=== PATIENT | female | born 1960 | race Caucasian/White ===

== ENCOUNTER 2020-04-15 21:45 | Inpatient (IN) | payer OTHER ==
[~2020-04-15] VITALS: Ht 177.8 cm; Wt 128.2 kg
--- NOTE | 2020-04-15 22:58 | PHYS DOC ---
Adult General Chief Complaint Chief Complaint: SHORTNESS OF BREATH HPI HPI Patient is a 59-year-old female who presents with a chief complaint of shortness of breath and measured hypoxia to 88 on home O2 sat monitor. States she has had symptoms of fever, dry cough and shortness of breath over the last 5 to 6 days and tested positive for Covid yesterday. States that after testing positive she brought her home O2 monitor and noticed that she was short of breath, tested herself at home when she was 88. States he has been taking Tylenol for the fever which helps a little. States she is still eating and drinking however. States he is making urine and stool normally with no blood in it. Denies any smoking, drinking or drugs. States she did have a fever up until 2 days ago 101. Denies headache, sore throat, runny nose, chest pain, abdominal pain, nausea, vomiting, dysuria, diarrhea or rash. Review of Systems Review of Systems Review of systems otherwise unremarkable except noted in HPI Current Medications Current Medications Current Medications Medications (Trade) Dose Ordered Sig/Samara Start Time Stop Time Status Last Admin Dose Admin Dexamethasone (Decadron) 6 mg 1X ONCE 04/15/20 23:30 04/15/20 23:31 Ibuprofen (Motrin) 600 mg 1X ONCE 04/15/20 23:30 04/15/20 23:31 Info (Do NOT chart on this entry -- for MONITORING) 1 each PRN DAILY PRN 04/15/20 23:00 04/17/20 22:59 Iohexol (Omnipaque 300 Mg/ml) 75 ml 1X ONCE 04/15/20 23:30 04/15/20 23:31 Lactated Ringer's 500 ml @ 500 mls/hr 1X ONCE 04/15/20 23:30 04/16/20 00:29 Allergies Allergies Allergies Coded Allergies Type Severity Reaction Last Updated Verified Penicillins Allergy Intermediate Rash 04/15/20 Yes Physical Exam Physical Exam Constitutional: Well developed, well nourished, no acute distress, non-toxic appearance. [] HENT: Normocephalic, atraumatic, oropharynx moist, no oral exudates, nose normal. [] Eyes: conjunctiva normal, no discharge. [] Neck: Normal range of motion, no tenderness, supple, no stridor. [] Cardiovascular: Tachycardia Lungs & Thorax: Global rhonchi Abdomen: soft, no tenderness, no masses, no pulsatile masses. [] Skin: Warm, dry, no erythema, no rash. [] Back: No tenderness, Extremities: No tenderness, no cyanosis, no clubbing, ROM intact, no edema. [] Neurologic: Alert and oriented X 3, normal motor function, normal sensory function, no focal deficits noted. [] Psychologic: Affect normal, judgement normal, mood normal. [] Current Patient Data Lab Results Laboratory Tests Test 04/15/20 22:50 White Blood Count 4.7 x10^3/uL (4.0-11.0) Red Blood Count 4.64 x10^6/uL (3.50-5.40) Hemoglobin 13.4 g/dL (12.0-15.5) Hematocrit 41.8 % (36.0-47.0) Mean Corpuscular Volume 90 fL (79-100) Mean Corpuscular Hemoglobin 29 pg (25-35) Mean Corpuscular Hemoglobin Concent 32 g/dL (31-37) Red Cell Distribution Width 14.9 % (11.5-14.5) Platelet Count 179 x10^3/uL (140-400) Neutrophils (%) (Auto) 79 % (31-73) Lymphocytes (%) (Auto) 12 % (24-48) Monocytes (%) (Auto) 8 % (0-9) Eosinophils (%) (Auto) 0 % (0-3) Basophils (%) (Auto) 1 % (0-3) Neutrophils # (Auto) 3.7 x10^3uL (1.8-7.7) Lymphocytes # (Auto) 0.6 x10^3/uL (1.0-4.8) Monocytes # (Auto) 0.4 x10^3/uL (0.0-1.1) Eosinophils # (Auto) 0.0 x10^3/uL (0.0-0.7) Basophils # (Auto) 0.0 x10^3/uL (0.0-0.2) Sodium Level 140 mmol/L (136-145) Potassium Level 3.6 mmol/L (3.5-5.1) Chloride Level 103 mmol/L (98-107) Carbon Dioxide Level 29 mmol/L (21-32) Anion Gap 8 (6-14) Blood Urea Nitrogen 10 mg/dL (7-20) Creatinine 1.1 mg/dL (0.6-1.0) Estimated GFR (Cockcroft-Gault) 50.7 BUN/Creatinine Ratio 9 (6-20) Glucose Level 120 mg/dL (70-99) Lactic Acid Level 1.5 mmol/L (0.4-2.0) Calcium Level 8.3 mg/dL (8.5-10.1) Total Bilirubin 0.5 mg/dL (0.2-1.0) Aspartate Amino Transf (AST/SGOT) 62 U/L (15-37) Alanine Aminotransferase (ALT/SGPT) 49 U/L (14-59) Alkaline Phosphatase 122 U/L (46-116) Troponin I Quantitative 0.023 ng/mL (0-0.055) Total Protein 7.1 g/dL (6.4-8.2) Albumin 3.0 g/dL (3.4-5.0) Albumin/Globulin Ratio 0.7 (1.0-1.7) EKG EKG Heart rate of 104, QRS of 84, QTc of 445, no STEMI [] Radiology/Procedures Radiology/Procedures []FINDINGS: Thyroid gland is normal in appearance. Right paratracheal lymph node measures 11 mm (series 3, image 20). Precarinal lymph node measures 10 mm (series 3, image 24). Subcarinal lymph node measures 12 mm (series 3, image 29) mild hepatic steatosis. Otherwise, visualized portions of the upper abdomen appear normal. No suspicious osseous abnormality is identified. Heart size within normal limits. Ascending thoracic aorta is normal in course and caliber. There are are multifocal areas of groundglass changes with mild interstitial prominence. There is relative subpleural sparing at the lung bases. Differential considerations would include alveolar edema versus multifocal pneumonia. No pleural effusions or pneumothorax. IMPRESSION: Multifocal areas of groundglass changes with mild interstitial prominence suggestive of a pneumonitis of infectious/inflammatory etiology. Less likely consideration would be given for pulmonary edema. Mediastinal lymphadenopathy is likely reactive. 3 month follow-up chest CT could be of benefit to ensure resolution. Electronically signed by: Cass Gudino MD (04/16/2020 12:00 AM) [facility] Heart Score Risk Factors: Risk Factors: DM, Current or recent (<one month) smoker, HTN, HLP, family history of CAD, obesity. Risk Scores: Risk Factors: DM, Current or recent (<one month) smoker, HTN, HLP, family history of CAD, obesity. Course & Med Decision Making Course & Med Decision Making Patient is a 59-year-old female who presents Covid positive with shortness of breath Vital signs notable for tachycardia, tachypnea and hypoxia on room air. Physical exam noted above. Patient placed on monitor with IV access established. 3 L nasal cannula applied to bring patient's O2 sat up to approximately 94%. EKG noted above with sinus tachycardia. Given IV fluid resuscitation, Tylenol, ibuprofen and steroids. Patient clinically improving but still on 3 L nasal cannula. Blood cultures. Started on Levaquin in the ED. Discussed findings with patient and recommended admission for continued evaluation and treatment of most likely Covid pneumonia and hypoxia. Patient grateful, verbalized understanding and agreed with plan of admission. [] Dragon Disclaimer Dragon Disclaimer This electronic medical record was generated, in whole or in part, using a voice recognition dictation system. Departure Departure: Impression: Primary Impression: Hypoxia Additional Impressions: Shortness of breath COVID-19 Pneumonia Disposition: ADMITTED INPT THIS HOSP Admitting Physician: Titi Tompkins Condition: IMPROVED Referrals: PCP,UNKNOWN (PCP) Problem Qualifiers LINDA KINSEY MD Apr 15, 2020 22:58
[2020-04-15] MEDS ORDERED: CONTRAST GIVEN. MC PRN (23:00)
[2020-04-15 23:07] LABS: BASO % 1 % (0-3); EOS % 0 % (0-3); HEMATOCRIT 41.8 % (36.0-47.0); HEMOGLOBIN 13.4 g/dL (12.0-15.5); LYMPH # 0.6 x10^3/uL (1.0-4.8); LYMPH % 12 % (24-48); MEAN CORPUSCULAR HEMOGLOBIN 29 pg (25-35); MEAN CORPUSCULAR HGB CONC 32 g/dL (31-37); MEAN CORPUSCULAR VOLUME 90 fL (79-100); MONO # 0.4 x10^3/uL (0.0-1.1); MONO % 8 % (0-9); NEUT # 3.7 x10^3uL (1.8-7.7); NEUT % 79 % (31-73); PLATELET COUNT 179 x10^3/uL (140-400); RED BLOOD COUNT 4.64 x10^6/uL (3.50-5.40); RED CELL DISTRIBUTION WIDTH 14.9 % (11.5-14.5); WHITE BLOOD COUNT 4.7 x10^3/uL (4.0-11.0)
[2020-04-15 23:17] LABS: CALCIUM 8.3 mg/dL (8.5-10.1); CREATININE 1.1 mg/dL (0.6-1.0); GFR 50.7; POTASSIUM 3.6 mmol/L (3.5-5.1)
[2020-04-15 23:21] LABS: ALBUMIN/GLOBULIN RATIO 0.7 (1.0-1.7); TOTAL BILIRUBIN 0.5 mg/dL (0.2-1.0); TOTAL PROTEIN 7.1 g/dL (6.4-8.2)
[2020-04-15] MEDS ORDERED: IV RINGERS SOLUTION,LACTATED 500 ML IV ONE (23:30)
[2020-04-15] MEDS ORDERED: IBUPROFEN 600 MG TABLET. PO ONE (23:30)
[2020-04-15] MEDS ORDERED: DEXAMETHASONE 4 MG TABLET PO ONE (23:30)
[2020-04-15] MEDS ORDERED: IOHEXOL 300 MG/ML 75 ML VIAL. IV ONE (23:30)
--- NOTE | 2020-04-16 00:02 | RAD ---
PQRS Compliance Statement: One or more of the following individualized dose reduction techniques were utilized for this examinat ion: 1. Automated exposure control 2. Adjustment of the mA and/or kV according to patient size 3. Use of iterative reconstruction technique CT THORAX W 04/15/2020 11:12 PM Indication: Hypoxia, cough and congestion. Covid. COMPARISON: None available. TECHNIQUE: Multiple axial CT images of the chest were obtained after the intravenous administration o f 75 cc Omnipaque 300. Coronal and sagittal reformats are provided. FINDINGS: Thyroid gland is normal in appearance. Right paratracheal lymph node measures 11 mm (series 3, image 20). Precarinal lymph node measures 10 mm (series 3, image 24). Subcarinal lymph node measures 12 mm (series 3, image 29) mild hepatic steatosis. Otherwise, visualized portions of the upper abdomen appe ar normal. No suspicious osseous abnormality is identified. Heart size within normal limits. Ascendin g thoracic aorta is normal in course and caliber. There are are multifocal areas of groundglass changes with mild interstitial prominence. There is rel ative subpleural sparing at the lung bases. Differential considerations would include alveolar edema versus multifocal pneumonia. No pleural effusions or pneumothorax. IMPRESSION: Multifocal areas of groundglass changes with mild interstitial prominence suggestive of a pneumonitis of infectious/inflammatory etiology. Less likely consideration would be given for pulmonary edema. Mediastinal lymphadenopathy is likely reactive. 3 month follow-up chest CT could be of benefit to ens ure resolution. Electronically signed by: Cass Gudino MD (04/16/2020 12:00 AM) [facility]
[2020-04-16] MEDS: IV NORMAL SALINE 1,000ML 1,000 ML IV SCH ×2 (04:30→16:01)
[2020-04-16 05:30] VITALS: BP 127/76
[2020-04-16 06:11] LABS: BASO % 0 % (0-3); EOS % 0 % (0-3); HEMATOCRIT 39.3 % (36.0-47.0); HEMOGLOBIN 12.6 g/dL (12.0-15.5); LYMPH # 0.5 x10^3/uL (1.0-4.8); LYMPH % 9 % (24-48); MEAN CORPUSCULAR HEMOGLOBIN 29 pg (25-35); MEAN CORPUSCULAR HGB CONC 32 g/dL (31-37); MEAN CORPUSCULAR VOLUME 90 fL (79-100); MONO # 0.4 x10^3/uL (0.0-1.1); MONO % 7 % (0-9); NEUT # 4.7 x10^3uL (1.8-7.7); NEUT % 84 % (31-73); PLATELET COUNT 194 x10^3/uL (140-400); RED BLOOD COUNT 4.37 x10^6/uL (3.50-5.40); RED CELL DISTRIBUTION WIDTH 14.8 % (11.5-14.5); WHITE BLOOD COUNT 5.6 x10^3/uL (4.0-11.0)
--- NOTE | 2020-04-16 06:12 | EKG ---
[address] [address] Test Date: 2020-04-15 Test Time: 22:31:44 Pat Name: MOR PITTMAN Department: Room: 103 A Gender: F [employer] Principal: : 1960 Requested By: LINDA KINSEY Order Number: [id number] Reading MD: Measurements Intervals [place] Rate: 104 P: -2 WV: 130 QRS: 8 QRSD: 84 T: 19 QT: 334 QTc: 445 Interpretive Statements SINUS TACHYCARDIA NO SPECIFIC ECG ABNORMALITIES RI6.02 No previous ECG available for comparison
[2020-04-16 06:36] LABS: CALCIUM 8.3 mg/dL (8.5-10.1); CREATININE 0.8 mg/dL (0.6-1.0); GFR 73.2; POTASSIUM 3.5 mmol/L (3.5-5.1)
[2020-04-16] MEDS: IPRATROPIUM/ALBUTEROL 20/100mcg/INH INHALER. INH SCH ×4 (08:04→20:51)
[2020-04-16] MEDS: ENOXAPARIN 40 MG/0.4 ML SYRINGE. SQ SCH ×2 (08:05→20:52)
[2020-04-16 09:59] VITALS: BP 130/78
[2020-04-16] MEDS: DEXAMETHASONE SOD PHOS 4 MG/ML VIAL. IVP SCH (17:00)
--- NOTE | 2020-04-16 17:22 | HP ---
ADMIT DATE: 04/16/2020 HISTORY OF PRESENT ILLNESS: The patient is a 59-year-old female patient who presented to the Emergency Room with chief complaint of shortness of breath, hypoxia with oxygen saturation at 88% detected on home oxygen monitor. She stated that had symptoms of fever, dry cough and shortness of breath over the last 5-6 days. She was tested positive for COVID on 04/14/2020 and apparently had received her first dose of vaccine last week. She has taken Tylenol for fever without much help. She denied any headache. Denied any loss of smell or taste. Denied any nausea, vomiting or diarrhea. She was extensively investigated, has had lab work and imaging studies. Her CBC showed no abnormalities. She is mildly dehydrated on admission. Otherwise, her electrolytes are normal. Her AST and alkaline phosphatase slightly elevated. Her CT scan of the chest showed the patient has multifocal areas of ground glass changes with mild interstitial prominence suggestive of pneumonitis with infectious, inflammatory etiology, less likely consideration will be given for pulmonary edema. She has mediastinal lymphadenopathy, likely reactive. The patient was admitted with COVID-19 pneumonia as well as acute hypoxic respiratory failure. PAST MEDICAL HISTORY: Significant for hypothyroidism, hyperlipidemia, and questionable diabetes. PAST SURGICAL HISTORY: Unremarkable. ALLERGIES: SHE IS ALLERGIC TO PENICILLIN. MEDICATIONS: She is currently on following medications: She is on simvastatin 20 mg at bedtime, levothyroxine 75 mcg once a day. FAMILY HISTORY: She has 2 brothers and 2 sisters, one of her sisters has type 2 diabetes mellitus. The others are healthy. Her father is still alive at the age of 95, is known to have hyperlipidemia. Mother at age of 79, and as a complication of her diabetes and heart failure. She is known to have hypertension and diabetes, myocardial infarction, coronary artery bypass graft surgery and congestive heart failure. SOCIAL HISTORY: She is , has 2 sons and 1 daughter. She never smoked and does not drink alcohol or use any recreational drugs. She works as a teacher. REVIEW OF SYSTEMS: The patient denied any blurring of vision, cataract, glaucoma or macular degeneration. Denied any earache, tinnitus or sensorineural deafness. Denied any nosebleeds, stuffy nose or postnasal drip. Denied any sore throat, sore tongue, toothache, hoarseness of voice or difficulty swallowing. She denied any nausea, vomiting, diarrhea or constipation. Denied any hematemesis, melena or hematochezia. Denied any dysuria, frequency or hematuria. Denied any chest pain. Did complain of shortness of breath and cough that is mostly dry and hacking. Denied any orthopnea or paroxysmal nocturnal dyspnea. Denied any dizziness, lightheadedness, or vertigo. PHYSICAL EXAMINATION: GENERAL: On arrival to the Emergency Room, she looked slightly tachypneic, but there is no pallor, jaundice, cyanosis or thyromegaly. No jugular venous distension. No limb edema. VITAL SIGNS: Her heart rate was 94, blood pressure 155/79, temperature was 102.7, respiratory rate was 22 and oxygen saturation was 93% on 3 liters of oxygen. HEAD, EYES, EARS, NOSE AND THROAT: Showed normocephalic, atraumatic. NECK: Supple. HEART: Showed normal first and second heart sounds. No gallop, rub or murmur. CHEST: Clear to auscultation. No crepitation or rhonchi. ABDOMEN: Distended, soft, nontender. NEUROLOGIC: She is awake, alert, responding appropriately. All her cranial nerves are intact. She moves all extremities without difficulty. She ambulates without assistance or assistive devices. LABORATORY DATA: Showed a serum sodium 140, potassium 3.6, chloride 103, bicarbonate 29, anion gap of 8, BUN 10, creatinine 1.1, estimated GFR was 51 mL per minute, her glucose 120, lactic acid was 1.5, and calcium was 8.3. Total bilirubin and ALT are normal. AST and alkaline phosphatase slightly elevated. Total protein 7.1, albumin was 3. Her white cell count was 4.7, hemoglobin 13.4, hematocrit 41, MCV 90, and platelet count of 179,000. Her CT angio of the chest showed that the thyroid gland is normal in appearance. Right paratracheal lymph nodes measuring up to 11 mm. She has been precarinal lymph nodes measuring 10 mm, subcarinal lymph node measuring 12 mm. Mild hepatic steatosis, otherwise the visualized portion of the upper abdomen appears normal. No suspicious osseous abnormality identified. The heart size is within normal limits. Ascending thoracic aorta is normal in course and caliber. There are multifocal areas of ground glass changes with mild interstitial prominence. There is relative subpleural sparing of the lung bases. Differential consideration would include alveolar edema versus multifocal pneumonia. No pleural effusion or pneumothorax. ASSESSMENT AND PLAN: The patient was admitted with COVID-19 pneumonia as well as acute hypoxic respiratory failure. Other medical problems include hypothyroidism, hyperlipidemia and questionable type 2 diabetes. Her hemoglobin A1c last time was checked was 6.5% in March of last year. The patient was admitted and was started on IV levofloxacin and lactobacillus as well as Lovenox 40 mg subcutaneous twice a day together with bronchodilator and dexamethasone. JEROME MENEZES MD DR: AAMIR/roddy JOB#: [id number] / [id number]
[2020-04-16 19:54] VITALS: BP 131/84
--- NOTE | 2020-04-16 20:09 | PN ---
DATE: 04/16/2020 SUBJECTIVE: The patient is sitting comfortably in her chair, no apparent respiratory distress. She, however, continued to have recurrent hacking cough, is mostly dry and distressing. Denied any chest pain. Denied any chills, rigors, or fever. PHYSICAL EXAMINATION: GENERAL: When I saw her this afternoon, she looked well and was clearly in no apparent respiratory distress. No pallor, jaundice, cyanosis or thyromegaly. No jugular venous distention or limb edema. VITAL SIGNS: Her heart rate was 81, blood pressure was 130/78, temperature was 98, respiratory rate was 18 and oxygen saturation was 93% on 3 liters of oxygen by nasal cannula. HEAD, EYES, EARS, NOSE AND THROAT: Showed normocephalic, atraumatic. NECK: Supple. HEART: Normal first and second heart sounds. No gallop, rub or murmur. CHEST: Clear to auscultation. No crepitation or rhonchi. ABDOMEN: Distended, soft, nontender. NEUROLOGIC: She was grossly intact. Her intake and output were incompletely recorded. LABORATORY DATA: Her lab work this morning showed a white cell count of 5600; hemoglobin 12.6; hematocrit 39; MCV 90 and platelet count of 194,000. Her chemistry showed a serum sodium 139, potassium 3.5, chloride 101, bicarbonate 26, anion gap of 12, BUN 9, creatinine 0.8, estimated GFR was 73 mL per minute. Her glucose 161 and calcium was 8.3. ASSESSMENT: 1. COVID-19 pneumonia. 2. Acute hypoxic respiratory failure. 3. Questionable superimposed community-acquired pneumonia. 4. Hypothyroidism. 5. Hyperlipidemia. 6. Questionable type 2 diabetes mellitus. JEROME MENEZES MD DR: AAMIR/roddy JOB#: [id number] / [id number]
[2020-04-16] MEDS: SIMVASTATIN 20 MG TABLET PO SCH (20:52)
[2020-04-16] MEDS: LACTOBACILLUS RHAMNOSUS GG 1 CAPSULE. PO SCH (20:52)
[2020-04-16] MEDS: ACETAMINOPHEN/CODEINE 300/30MG TABLET PO SCH (20:53)
[2020-04-17] MEDS: IV NORMAL SALINE 1,000ML 1,000 ML IV SCH ×2 (01:30→21:34)
[2020-04-17] MEDS: LEVOTHYROXINE 75 MCG TABLET PO SCH (05:39)
[2020-04-17 06:00] VITALS: BP 114/73
[2020-04-17] MEDS: ENOXAPARIN 40 MG/0.4 ML SYRINGE. SQ SCH ×2 (08:00→21:34)
[2020-04-17] MEDS: LACTOBACILLUS RHAMNOSUS GG 1 CAPSULE. PO SCH ×2 (08:00→21:34)
[2020-04-17] MEDS: DEXAMETHASONE SOD PHOS 4 MG/ML VIAL. IVP SCH (08:00)
[2020-04-17] MEDS: IPRATROPIUM/ALBUTEROL 20/100mcg/INH INHALER. INH SCH ×4 (08:00→21:34)
[2020-04-17 09:43] LABS: ALBUMIN 2.5 g/dL (3.4-5.0); ALBUMIN/GLOBULIN RATIO 0.7 (1.0-1.7); CALCIUM 7.9 mg/dL (8.5-10.1); CREATININE 0.8 mg/dL (0.6-1.0); GFR 73.2; POTASSIUM 3.6 mmol/L (3.5-5.1); TOTAL BILIRUBIN 0.3 mg/dL (0.2-1.0); TOTAL PROTEIN 6.3 g/dL (6.4-8.2)
[2020-04-17 11:27] VITALS: BP 137/76
--- NOTE | 2020-04-17 13:58 | PN ---
DATE: 04/17/2020 SUBJECTIVE: The patient is sitting comfortably in her chair, continued to complain of recurrent bouts of cough. She also had episodes of drenching sweats at night time, but denied any chest pain. Her oxygen saturation was about 91-92% on 4 liters of oxygen. OBJECTIVE: GENERAL: When I examined her this afternoon, she looked well and was clearly in no apparent respiratory distress. No pallor, jaundice, cyanosis or thyromegaly. No jugular venous distension. No limb edema. VITAL SIGNS: Her heart rate was 74, blood pressure was 137/76, temperature was 97.7, respiratory rate was 18 and oxygen saturation was 93% on 4 liters of oxygen. HEAD, EYES, EARS, NOSE, AND THROAT: Showed normocephalic, atraumatic. NECK: Supple. HEART: Showed normal first and second heart sounds. No gallop or murmur. CHEST: Clear to auscultation. No crepitation or rhonchi. ABDOMEN: Distended, soft, nontender. NEUROLOGIC: She is awake, alert, responding appropriately. All cranial nerves intact. She moves extremities without difficulty. Her intake was 1100, no output was recorded. LABORATORY DATA: As of yesterday showed a white cell count 5600, hemoglobin 12.6, hematocrit 39, MCV 90 and platelet count of 194,000 with normal manual differential. Her chemistry this morning showed a serum sodium 143, potassium 3.6, chloride 108, bicarbonate 28, anion gap of 7, BUN 13, creatinine 0.8, estimated GFR was 73 mL per minute. Her glucose 168, calcium was 7.9. Total bilirubin and alkaline phosphatase is normal. AST, ALT are elevated. Her total protein was 6.3, albumin was 2.5. D-dimer was high at 1.02. However, her CT angio of the chest showed that the patient has multifocal areas of ground glass changes with mild interstitial prominence suggestive of pneumonitis with infectious, inflammatory etiology. ASSESSMENT: 1. COVID-19 pneumonia. 2. Acute hypoxic respiratory failure. 3. Questionable superimposed community-acquired pneumonia. 4. Hypothyroidism. 5. Hyperlipidemia. 6. Questionable type 2 diabetes mellitus. PLAN: To continue with levothyroxine. Continue with levofloxacin. Continue with Codeine, dexamethasone 6 mg IV daily and Lovenox 40 mg subcutaneous twice a day together with bronchodilator. JEROME MENEZES MD DR: AAMIR/roddy JOB#: [id number] / [id number]
[2020-04-17] MEDS: ACETAMINOPHEN/CODEINE 300/30MG TABLET PO SCH (21:34)
[2020-04-17] MEDS: SIMVASTATIN 20 MG TABLET PO SCH (21:34)
[2020-04-17 21:45] VITALS: BP 142/86
[2020-04-18] MEDS: LEVOTHYROXINE 75 MCG TABLET PO SCH (05:25)
[2020-04-18 06:13] VITALS: BP 124/81
[2020-04-18] MEDS: IPRATROPIUM/ALBUTEROL 20/100mcg/INH INHALER. INH SCH ×4 (08:00→20:00)
[2020-04-18 08:09] LABS: HEMATOCRIT 36.4 % (36.0-47.0); HEMOGLOBIN 11.7 g/dL (12.0-15.5); RED BLOOD COUNT 4.04 x10^6/uL (3.50-5.40); RED CELL DISTRIBUTION WIDTH 15.2 % (11.5-14.5)
[2020-04-18 08:20] LABS: ALBUMIN 2.4 g/dL (3.4-5.0); ALBUMIN/GLOBULIN RATIO 0.7 (1.0-1.7); CREATININE 0.8 mg/dL (0.6-1.0); GFR 73.2; POTASSIUM 3.1 mmol/L (3.5-5.1); TOTAL BILIRUBIN 0.3 mg/dL (0.2-1.0)
[2020-04-18] MEDS ORDERED: POTASSIUM CHLORIDE 20 MEQ TABLET.ER. PO ONE (08:45)
[2020-04-18] MEDS: LACTOBACILLUS RHAMNOSUS GG 1 CAPSULE. PO SCH ×2 (09:13→20:37)
[2020-04-18] MEDS: DEXAMETHASONE SOD PHOS 4 MG/ML VIAL. IVP SCH (09:13)
[2020-04-18] MEDS: ENOXAPARIN 40 MG/0.4 ML SYRINGE. SQ SCH ×2 (09:14→20:37)
[2020-04-18] MEDS ORDERED: LORazepam 0.5 MG TABLET PO PRN (10:00)
[2020-04-18] MEDS ORDERED: ACETAMINOPHEN/CODEINE 300/30MG TABLET PO PRN (10:30)
[2020-04-18 11:16] VITALS: BP 155/69
[2020-04-18 12:26] LABS: CALCIUM 8.1 mg/dL (8.5-10.1); GFR 56.6; POTASSIUM 3.5 mmol/L (3.5-5.1)
--- NOTE | 2020-04-18 14:16 | PN ---
DATE: 04/18/2020 SUBJECTIVE: The patient was resting, almost flat in bed, sleeping comfortably. She apparently had an episode of anxiety this morning, it has resolved spontaneously. We did actually order Tylenol No. 3 and also Ativan, but she declined to take Ativan and she has managed to have a nap around for almost an hour, after which she felt very well. PHYSICAL EXAMINATION: GENERAL: When I examined her, she looked well and was clearly in no apparent respiratory distress, slightly pale, no jaundice, cyanosis or thyromegaly. No jugular venous distention. No lower limb edema. VITAL SIGNS: Her heart rate was 80, blood pressure was 155/69, temperature was 97.4, respiratory rate was 20, and oxygen saturation was 94% on 3-4 liters of oxygen. HEAD, EYES, EARS, NOSE, AND THROAT: Showed normocephalic, atraumatic. NECK: Supple. HEART: Showed normal first and second heart sounds. No gallop or murmurs. CHEST: Showed central trachea, equal bilateral chest expansion, air entry, vesicular sounds. No crepitation or rhonchi anteriorly, bilateral basal crepitation without any rhonchi posteriorly. ABDOMEN: Distended, soft, nontender. NEUROLOGIC: She was grossly intact. Her intake was 1820, no output was recorded. LABORATORY DATA: Her lab work this morning showed a serum sodium 144, potassium 3.1, chloride 108, bicarbonate 28, anion gap of 8, BUN 14, creatinine 0.8, estimated GFR was 73 mL per minute. Her glucose was 123, calcium was 8. Total bilirubin and alkaline phosphatase normal. AST, ALT slightly elevated. Her total protein was 6, albumin was 2.4. Her white cell count was 6000, hemoglobin 11.7, hematocrit 36, MCV 90 and platelet count 295,000. Her D-dimer was slightly elevated at 1.02. ASSESSMENT: 1. COVID-19 pneumonia. 2. Acute hypoxic respiratory failure. 3. Questionable superimposed community-acquired pneumonia. 4. Hypothyroidism. 5. Hyperlipidemia. 6. Questionable type 2 diabetes mellitus. PLAN: To continue with levothyroxine. Continue with IV levofloxacin. Continue with Codeine as well as dexamethasone as well as Lovenox as well as bronchodilator. JEROME MENEZES MD DR: AAMIR/roddy JOB#: [id number] / [id number]
[2020-04-18 16:00] VITALS: BP 136/88
[2020-04-18] MEDS: SIMVASTATIN 20 MG TABLET PO SCH (20:37)
[2020-04-18] MEDS: ACETAMINOPHEN/CODEINE 300/30MG TABLET PO SCH (20:38)
[2020-04-18 22:30] VITALS: BP 127/81
[2020-04-19] MEDS: LEVOTHYROXINE 75 MCG TABLET PO SCH (05:16)
[2020-04-19 05:32] VITALS: BP 130/80
[2020-04-19 05:53] LABS: HEMATOCRIT 35.8 % (36.0-47.0); HEMOGLOBIN 11.6 g/dL (12.0-15.5); RED BLOOD COUNT 3.98 x10^6/uL (3.50-5.40); RED CELL DISTRIBUTION WIDTH 14.7 % (11.5-14.5); WHITE BLOOD COUNT 6.4 x10^3/uL (4.0-11.0)
[2020-04-19 06:29] LABS: ALBUMIN 2.3 g/dL (3.4-5.0); ALBUMIN/GLOBULIN RATIO 0.6 (1.0-1.7); CALCIUM 7.8 mg/dL (8.5-10.1); CREATININE 0.8 mg/dL (0.6-1.0); GFR 73.2; POTASSIUM 3.6 mmol/L (3.5-5.1); TOTAL BILIRUBIN 0.3 mg/dL (0.2-1.0); TOTAL PROTEIN 5.9 g/dL (6.4-8.2)
[2020-04-19] MEDS: IPRATROPIUM/ALBUTEROL 20/100mcg/INH INHALER. INH SCH ×4 (08:00→20:00)
[2020-04-19] MEDS: LACTOBACILLUS RHAMNOSUS GG 1 CAPSULE. PO SCH ×2 (09:00→21:23)
[2020-04-19] MEDS: DEXAMETHASONE SOD PHOS 4 MG/ML VIAL. IVP SCH (09:00)
[2020-04-19] MEDS: ENOXAPARIN 40 MG/0.4 ML SYRINGE. SQ SCH ×2 (09:00→21:24)
[2020-04-19 11:14] VITALS: BP 142/89
--- NOTE | 2020-04-19 14:38 | PN ---
DATE: 04/19/2020 SUBJECTIVE: The patient is sitting comfortably in her chair, in no apparent distress. She stated that her cough is much less and she has slept very well last night. PHYSICAL EXAMINATION: GENERAL: When I examined her, she looked well, slightly pale, but no jaundice, cyanosis or thyromegaly. No jugular venous distention or limb edema. VITAL SIGNS: Her heart rate was 90, blood pressure was 142/89, temperature was 98.9, respiratory rate was 20, and oxygen saturation was 91% on 3 liters of oxygen. HEAD, EYES, EARS, NOSE, AND THROAT: Showed normocephalic, atraumatic. NECK: Supple. HEART: Showed normal first and second heart sounds. No gallop, rub or murmur. CHEST: Shows central trachea, equal bilateral chest expansion, air entry, vesicular sounds, very few crepitations posteriorly on both sides. I could not appreciate any rhonchi. ABDOMEN: Distended, soft, nontender. NEUROLOGIC: She is grossly intact. Her intake was 2600, output was incompletely recorded. LABORATORY DATA: Her lab work this morning showed a white cell count of 6400, hemoglobin 11.6, hematocrit 36, MCV 90 and platelet count 316,000. Her D-dimer is 1.49. Her chemistry showed a serum sodium of 145, potassium 3.6, chloride 108, bicarbonate 29, anion gap of 8, BUN 10, creatinine 0.8, estimated GFR was 73 mL per minute. Her glucose 117, calcium was 7.8. Total bilirubin and alkaline phosphatase were normal. AST and ALT are slightly elevated and slightly higher. Her total protein was 5.9, albumin was 2.3. ASSESSMENT: 1. COVID-19 pneumonia. 2. Acute hypoxic respiratory failure. She is now on 3 liters of oxygen, maintaining her oxygen saturation at 90-93%. 3. Questionable superimposed community-acquired pneumonia. 4. Hypothyroidism. 5. Hyperlipidemia. 6. Questionable type 2 diabetes mellitus. Blood sugar is slightly elevated. Her fasting glucose yesterday was 123, although she is not on any oral hypoglycemic agent. PLAN: My plan is to continue with levothyroxine, continue with levofloxacin, continue with Codeine as well as dexamethasone as well as Lovenox and bronchodilator. JEROME MENEZES MD DR: AAMIR/roddy JOB#: [id number] / [id number]
[2020-04-19 21:08] VITALS: BP 148/88
[2020-04-19] MEDS: SIMVASTATIN 20 MG TABLET PO SCH (21:24)
[2020-04-19] MEDS: ACETAMINOPHEN/CODEINE 300/30MG TABLET PO SCH (21:24)
[2020-04-20] MEDS: LEVOTHYROXINE 75 MCG TABLET PO SCH (05:31)
[2020-04-20 05:38] VITALS: BP 121/85
[2020-04-20] MEDS: IPRATROPIUM/ALBUTEROL 20/100mcg/INH INHALER. INH SCH ×4 (08:00→20:00)
[2020-04-20] MEDS: LACTOBACILLUS RHAMNOSUS GG 1 CAPSULE. PO SCH ×2 (09:00→22:11)
[2020-04-20] MEDS: ENOXAPARIN 40 MG/0.4 ML SYRINGE. SQ SCH ×2 (09:00→22:10)
[2020-04-20] MEDS: DEXAMETHASONE SOD PHOS 4 MG/ML VIAL. IVP SCH (09:00)
[2020-04-20 14:49] VITALS: BP 126/80
[2020-04-20 15:20] VITALS: BP 121/82
--- NOTE | 2020-04-20 17:41 | DS ---
DATE OF DISCHARGE: 04/20/2020 HISTORY OF PRESENT ILLNESS: The patient is sitting comfortably in her chair, in no apparent distress. Her cough is much less today. Her fingers are less swollen today and she stated that she is generally feeling much better. Her oxygen requirement is down to 2.5 liters, maintaining her oxygen saturation at 93%. PHYSICAL EXAMINATION: GENERAL: When I examined her, she looked well and was clearly in no apparent distress, slightly pale, but no jaundice, cyanosis or thyromegaly. No jugular venous distention or limb edema. VITAL SIGNS: Her heart rate was 88, blood pressure was 121/82, temperature was 97.8, respiratory rate 20, and oxygen saturation was 93% on 2.5 liters of oxygen. HEAD, EYES, EARS, NOSE AND THROAT: Showed normocephalic, atraumatic. NECK: Supple. HEART: Showed normal first and second heart sounds. No gallop, rub or murmur. CHEST: Clear to auscultation. No crepitation or rhonchi. ABDOMEN: Distended, soft, nontender. She does have some few bilateral basal crepitation. I could not appreciate any rhonchi. ABDOMEN: Soft, nontender. NEUROLOGIC: She is grossly intact. Her intake was 900. No output was recorded. LABORATORY DATA: As of yesterday, her white cell count was 6400, hemoglobin 12, hematocrit 36, MCV 90 and platelet count 316,000. Her chemistry showed serum sodium of 145, potassium 3.6, chloride 108, bicarbonate 29, anion gap of 8, BUN 10, creatinine 0.8, estimated GFR was 73 mL per minute. Her glucose 117, calcium was 7.8. Total bilirubin and alkaline phosphatase were normal. AST and ALT were slightly elevated. Total protein was 5.9, albumin was 2.3. Her D-dimer was 1.49. ASSESSMENT: 1. COVID-19 pneumonia. 2. Acute hypoxic respiratory failure. She is now on 2.5 liters of oxygen, maintaining her oxygen saturation at 93%. 3. Questionable superimposed community-acquired pneumonia. 4. Hypothyroidism. 5. Hyperlipidemia. 6. Questionable type 2 diabetes. Her blood sugar so far seems to be slightly elevated, probably needs to follow with her primary care physician to make sure that her blood sugar remained stable. She is on dexamethasone, which obviously contribute to the hyperglycemia. PLAN: My plan is to continue with all her current medication. I explained to her that it is quite feasible that she might be able to go home tomorrow to continue with oxygen and her antibiotic and tapering course of steroids and arrangement will be made for her to be seen by a design lead, Dr. Ty or Dr. Presley as an outpatient in 2 to 3 weeks' time. JEROME MENEZES MD DR: AAMIR/roddy JOB#: [id number] / [id number]
[2020-04-20 19:38] VITALS: BP 120/74
[2020-04-20] MEDS: SIMVASTATIN 20 MG TABLET PO SCH (22:10)
[2020-04-20] MEDS: ACETAMINOPHEN/CODEINE 300/30MG TABLET PO SCH (22:11)
[2020-04-20] MEDS: DOCUSATE SODIUM 100 MG CAPSULE PO SCH (22:13)
[2020-04-21 05:59] VITALS: BP 128/79
[2020-04-21] MEDS: LEVOTHYROXINE 75 MCG TABLET PO SCH (06:01)
[2020-04-21 06:27] LABS: HEMATOCRIT 37.2 % (36.0-47.0); HEMOGLOBIN 11.9 g/dL (12.0-15.5); RED BLOOD COUNT 4.14 x10^6/uL (3.50-5.40); WHITE BLOOD COUNT 6.4 x10^3/uL (4.0-11.0)
[2020-04-21 06:57] LABS: ALBUMIN 2.3 g/dL (3.4-5.0); ALBUMIN/GLOBULIN RATIO 0.6 (1.0-1.7); CALCIUM 8.2 mg/dL (8.5-10.1); CREATININE 0.8 mg/dL (0.6-1.0); GFR 73.2; POTASSIUM 3.5 mmol/L (3.5-5.1); TOTAL BILIRUBIN 0.3 mg/dL (0.2-1.0); TOTAL PROTEIN 6.3 g/dL (6.4-8.2)
[2020-04-21] MEDS: IPRATROPIUM/ALBUTEROL 20/100mcg/INH INHALER. INH SCH (08:00)
[2020-04-21] MEDS: LACTOBACILLUS RHAMNOSUS GG 1 CAPSULE. PO SCH (08:38)
[2020-04-21] MEDS: ENOXAPARIN 40 MG/0.4 ML SYRINGE. SQ SCH (08:38)
[2020-04-21] MEDS: DOCUSATE SODIUM 100 MG CAPSULE PO SCH (08:39)
[2020-04-21] MEDS: DEXAMETHASONE SOD PHOS 4 MG/ML VIAL. IVP SCH (08:39)
--- NOTE | 2020-04-21 10:19 | DS ---
DATE OF DISCHARGE: 04/21/2020 ATTENDING PHYSICIAN: Dr. Tompkins. FINAL DISCHARGE DIAGNOSES: 1. COVID-19 pneumonia. 2. Acute hypoxemic respiratory failure, improved. 3. Community-acquired pneumonia. 4. Hypothyroidism, on replacement. 5. Hyperlipidemia. 6. Questionable type 2 diabetes. 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 She was tested positive for COVID-19 pneumonia. PHYSICAL EXAMINATION: Please see the dictated note. PERTINENT LABORATORY AND X-RAY STUDIES: On admission, her hemoglobin was 13.4 g/dL, white count 4700. Chemistry panel fairly unremarkable. Nonfasting blood sugar in the low 100s. The electrolytes within normal range. Sodium 143, potassium 3.5 mEq, creatinine 0.8 mg percent. She had a positive COVID-19 swab. Chest x -ray on admission ____, she had ground glass appearance with interstitial prominence suggestive of atypical pneumonia. The patient was admitted. She was started on Decadron, Lovenox, supplemental oxygen. This was gradually weaned off and she did well. By the sixth hospital day, her oxygen saturations were 95% on room air. Her lungs were clear. She was moving air well. She has no symptoms. At this time, I recommended Decadron for 7 more days, 8 mg p.o. daily, Tussionex 5 mL q. 12 hours p.r.n. cough and follow up with her PCP. She is still undergoing quarantine from school. The patient was then discharged from our hospital in stable condition with explicit instructions and followup care. TOTAL DISCHARGE TIME SPENT: 41 minutes. VU BECK MD DR: ALEJANDRO/roddy JOB#: [id number] / [id number]
[2020-04-21 10:45] VITALS: BP 126/78
== END 2020-04-21 11:15 | disposition home or self-care (01) | DRG 177 ==
LOC: ER 21:45 → 1 SOUTH 04-16 01:22
PROVIDERS: ADMIT Internal Medicine; ATTEND Internal Medicine
DX: U07.1 COVID-19 (principal); J12.82 Pneumonia due to coronavirus disease 2019; J96.01 Acute respiratory failure with hypoxia; E86.0 Dehydration; E03.9 Hypothyroidism, unspecified; E11.9 Type 2 diabetes mellitus without complications; E78.5 Hyperlipidemia, unspecified; F41.9 Anxiety disorder, unspecified; Z88.0 Allergy status to penicillin; Z82.49 Family history of ischemic heart disease and other diseases of the circulatory system; Z83.3 Family history of diabetes mellitus
CPT/HCPCS: 36415; 71260; 80048; 80053; 83605; 84484; 85025; 85027; 85379; 93005; 96361; 96365; 99285; J1100; J1650; J1956; J7120; J8540; Q9967; J7030